=== PATIENT | female | born 1990 | race African-American/Black ===

== ENCOUNTER 2016-06-26 20:04 | Emergency (ER) | payer MEDICAID ==
[2016-06-26] MEDS ORDERED: cefTRIAXone 2 GM, Lidocaine 1% 4.2 ML IM ONE ×2 (20:53)
[2016-06-26] MEDS ORDERED: Acetaminophen/Codeine 300-30 MG Tab PO ONE (21:45)
[2016-06-26] MEDS ORDERED: Ketorolac 10 MG Tab PO ONE (21:45)
--- NOTE | 2016-06-26 21:51 | EDM.PDOC ---
ED HPI GENERAL MEDICAL PROBLEM - General Chief Complaint: Fever Stated Complaint: throat pain, headache, cellulitis right ankle Time Seen by Provider: 06/26/16 20:06 Source of Information: Reports: Patient History Limitations: Reports: No limitations - History of Present Illness INITIAL COMMENTS - FREE TEXT/NARRATIVE: Patient reports upper respiratory cough, sore throat, chest tightness, as well as a swollen, red right ankle. She states she does skateboard and scraped her ankle last night. It is now painful as well. She has history of foot surgery during 4-5th grades and does have hardware placed. Her respiratory symptoms began 2-3 days ago. She denies chills, nausea, vomiting, no urinary problems, no bowel problems, no blood noted in either, nor in emesis, which she again denies. No complaints of headache, no weakness, double or blurry vision. Onset: today Onset Date: 06/26/16 Onset Time: 08:00 Location: Reports: lower extremity, right Quality: Reports: Ache, Pressure Severity: moderate Improves with: Reports: Cold therapy, Rest Worsens with: Reports: Movement Associated Symptoms: Reports: fever/chills - Related Data Allergies Allergy/AdvReac Type Severity Reaction Status Date / Time azithromycin [From Zithromax] Allergy Hives Verified 06/26/16 20:56 erythromycin base Allergy Hives Verified 06/26/16 20:56 [From E-Mycin] hydromorphone HCl Allergy Shortness Verified 06/26/16 20:56 [From Dilaudid] of Breath Penicillins Allergy Hives Verified 06/26/16 20:56 Home Meds: Home Meds buPROPion [Wellbutrin XL] 150 mg PO DAILY 06/26/16 [History] Past Medical History - Past Surgical History Other HEENT Surgeries/Procedures: adenoids removed also Other Female Surgeries/Procedures: ovarian cyst removed Other Musculoskeletal Surgeries/Procedures:: bilat foot surgery. 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 Boxers fracture to R hand Social & Family History - Tobacco Use Smoking Status *Q: Never Smoker Years of Tobacco use: 12 - Alcohol Use Days Per Week of Alcohol Use: 0 - Recreational Drug Use Recreational Drug Use: No ED ROS GENERAL - Review of Systems Review Of Systems: See Below Constitutional: Reports: fever. Denies: chills HEENT: Reports: No symptoms Respiratory: Reports: No Symptoms Cardiovascular: Reports: No symptoms Endocrine: Reports: no symptoms GI/Abdominal: Reports: No symptoms : Reports: no symptoms Musculoskeletal: Reports: leg pain (right ankle), foot pain Skin: Reports: erythema Neurological: Reports: No Symptoms Psychiatric: Reports: No symptoms ED EXAM, GENERAL - Physical Exam Exam: See Below Exam Limited By: No limitations General Appearance: alert, WD/WN, mild distress Eye Exam: bilateral eye: EOMI, PERRL Ears: normal TMs Throat/Mouth: Normal inspection, Normal oropharynx, No airway compromise Head: atraumatic, normocephalic Neck: normal inspection, supple Respiratory/Chest: no respiratory distress, lungs clear, normal breath sounds Cardiovascular: normal peripheral pulses, regular rate, rhythm Peripheral Pulses: 2+: posterior tibial (L), posterior tibial (R), dorsalis pedis (L), dorsalis pedis (R) GI/Abdominal: normal bowel sounds, soft, non tender, no organomegaly Extremities: pedal edema (right ankle and foot), limited range of motion, increased warmth (right foot/ankle), redness Neurological: alert, oriented, CN II-XII intact, normal cognition Psychiatric: normal affect, normal mood Skin Exam: Warm, Dry, Intact, Erythema Lymphatic: no adenopathy Course - Orders/Labs/Meds Orders: Active Orders 24 hr Category Date Time Status Ankle 2V Rt [CR] Stat Exams 06/26/16 20:54 Stop Req Foot 2V Rt [CR] Stat Exams 06/26/16 20:55 Ordered CULTURE STREP A CONFIRMATION [RM] Stat Lab 06/26/16 20:35 Results STREP SCRN A RAPID W CULT CONF [RM] Stat Lab 06/26/16 20:56 Uncollected Acetaminophen/Codeine [Tylenol with Codeine No.3 300MG/ Med 06/26/16 21:45 Once 30MG] 1 tab PO ONETIME ONE Ketorolac [Toradol] Med 06/26/16 21:45 Once 10 mg PO ONETIME ONE Medication Orders Acetaminophen/Codeine Phosphate (Tylenol With Codeine No.3 300mg/30mg) 1 tab PO ONETIME ONE Stop: 06/26/16 21:46 Ketorolac Tromethamine (Toradol) 10 mg PO ONETIME ONE Stop: 06/26/16 21:46 Labs: Laboratory Tests 04/06/26/16 06/26/16 Range/Units 21:14 21:14 21:14 WBC 9.9 (4.0-10.0) x10^3/uL RBC 3.91 L (4.00-5.50) x10^6/uL Hgb 11.8 L (12.0-16.0) g/dL Hct 34.7 (33.0-47.0) % MCV 88.7 (78.0-93.0) fL MCH 30.2 (26.0-32.0) pg MCHC 34.0 (32.0-36.0) g/dL RDW Coeff of Nilesh 12.8 (10.0-15.0) % Plt Count 261 (130-400) x10^3/uL Neut % (Auto) 74.7 (50.0-80.0) % Lymph % (Auto) 13.9 L (25.0-50.0) % [place] % (Auto) 10.4 (2.0-11.0) % Eos % (Auto) 0.6 (0.0-4.0) % Baso % (Auto) 0.4 (0.2-1.2) % Lactic Acid 2.0 (0.4-2.0) mmol/L C-Reactive Protein 7.9 H (<=0.9) mg/dL Meds: Medications Generic Name Dose Route Start Last Admin Trade Name Freq PRN Reason Stop Dose Admin Acetaminophen/Codeine Phosphate 1 tab 06/26/16 21:45 Tylenol With Codeine No.3 300mg/30mg PO 06/26/16 21:46 ONETIME ONE Ketorolac Tromethamine 10 mg 06/26/16 21:45 Toradol PO 06/26/16 21:46 ONETIME ONE Discontinued Medications Generic Name Dose Route Start Last Admin Trade Name Freq PRN Reason Stop Dose Admin Ceftriaxone Sodium 2 gm/ 0 gm 06/26/16 20:53 06/26/16 21:25 Lidocaine HCl 4.2 ml IM 06/26/16 20:54 5 inj ONETIME ONE Administration - Re-Assessments/Exams Free Text/Narrative Re-Assessment/Exam: 06/26/16 21:56 x-ray on right foot/ankle does show intact hardwar, no osteomyelitis or hardware infection Departure - Departure Time of Disposition: 22:13 Disposition: Home, Self-Care 01 Condition: good Clinical Impression: Cellulitis of foot without toes, right, Pharyngitis Instructions: Cellulitis, Adult, [id number] Forms: ED Department Discharge Additional Instructions: Return on and Friday for antibiotic therapy. Please read the instructions I have provided you and if you feel that your infection is worsening please schedule an appointment with your primary provider or return to the emergency room. Make sure to elevate your leg, try to stay off of your feet as much as possible over the next 3-5 days May use ice on your leg for pain Please call us with any questions or concerns - Problem List & Annotations (1) Cellulitis of foot without toes, right SNOMED Code(s): 879943984 Code(s): L03.115 - CELLULITIS OF RIGHT LOWER LIMB Status: Acute Priority : Low Current Visit: Yes - Problem List Review Problem List Initiated/Reviewed/Updated: Yes - My Orders Last 24 Hours: My Active Orders 06/26/16 20:35 CULTURE STREP A CONFIRMATION [RM] Stat 06/26/16 20:54 Ankle 2V Rt [CR] Stat 06/26/16 20:55 Foot 2V Rt [CR] Stat 06/26/16 20:56 STREP SCRN A RAPID W CULT CONF [RM] Stat 06/26/16 21:45 Acetaminophen/Codeine [Tylenol with Codeine No.3 300MG/30MG] 1 tab PO ONETIME ONE Ketorolac [Toradol] 10 mg PO ONETIME ONE - Assessment/Plan Last 24 Hours: My Active Orders 06/26/16 20:35 CULTURE STREP A CONFIRMATION [RM] Stat 06/26/16 20:54 Ankle 2V Rt [CR] Stat 06/26/16 20:55 Foot 2V Rt [CR] Stat 06/26/16 20:56 STREP SCRN A RAPID W CULT CONF [RM] Stat 06/26/16 21:45 Acetaminophen/Codeine [Tylenol with Codeine No.3 300MG/30MG] 1 tab PO ONETIME ONE Ketorolac [Toradol] 10 mg PO ONETIME ONE Assessment:: Cellulitis right foot Pharyngitis Plan: Return on and Friday for antibiotic therapy. Please read the instructions I have provided you and if you feel that your infection is worsening please schedule an appointment with your primary provider or return to the emergency room. Make sure to elevate your leg, try to stay off of your feet as much as possible over the next 3-5 days May use ice on your leg for pain Please call us with any questions or concerns
[2016-06-26] MEDS ORDERED: Take Home: Acetaminophen/HYDROcodone 325-10 MG, 5 Tab Pack PO ONE (21:58)
[2016-06-27 03:01] VITALS: BP 131/83
== END 2016-06-26 22:12 | disposition home or self-care (01) ==
LOC: VM.ED 20:04
DX: L03.115 Cellulitis of right lower limb (principal); Z88.0 Allergy status to penicillin; Z88.5 Allergy status to narcotic agent; Z79.899 Other long term (current) drug therapy
CPT/HCPCS: 36415; 73620; 83605; 85025; 86140; 87081; 87880; 96372; 99283; A9270; J0696

== ENCOUNTER 2016-07-01 18:51 | Emergency (ER) | payer MEDICAID | END 2016-07-01 20:30 | disposition left against medical advice (07) | LOC: VM.ED 18:51 | DX: Z53.21 Procedure and treatment not carried out due to patient leaving prior to being seen by health care provider (principal) ==

== ENCOUNTER 2016-07-13 20:26 | Emergency (ER) | payer MEDICAID ==
--- NOTE | 2016-07-13 20:51 | EDM.PDOC ---
ED HPI Skin/Rash - General Chief Complaint: Skin Complaint Stated Complaint: swelling of both lower legs Time Seen by Provider: 07/13/16 20:38 Source: Reports: Patient, RN, RN notes reviewed History Limitations: Reports: No limitations - History of Present Illness INITIAL COMMENTS - FREE TEXT/NARRATIVE: Patient presents to the ED at [facility] concerned about worsening swelling of her lower legs. Patient was diagnosed with cellulitis a couple weeks ago. She states she was non-compliant with taking her antibiotics that were prescribed to her a couple weeks ago. Patient states she thinks her symptoms are better. No pain in legs. No fevers or chills. Timing: Reports: still present, better - Related Data Allergies Allergy/AdvReac Type Severity Reaction Status Date / Time azithromycin [From Zithromax] Allergy Hives Verified 06/26/16 20:56 erythromycin base Allergy Hives Verified 06/26/16 20:56 [From E-Mycin] hydromorphone HCl Allergy Shortness Verified 06/26/16 20:56 [From Dilaudid] of Breath Penicillins Allergy Hives Verified 06/26/16 20:56 Home Meds: Ambulatory Orders Medication Instructions Recorded Confirmed buPROPion [Wellbutrin XL] 150 mg PO DAILY 06/26/16 06/26/16 Furosemide 20 mg PO DAILY #3 tablet 07/13/16 Past Medical History [employer] History: Reports: - Past Surgical History Other HEENT Surgeries/Procedures: adenoids removed also Other Female Surgeries/Procedures: ovarian cyst removed Other Musculoskeletal Surgeries/Procedures:: bilat foot surgery. 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 Boxers fracture to R hand Social & Family History - Tobacco Use Smoking Status *Q: Never Smoker Years of Tobacco use: 12 - Alcohol Use Days Per Week of Alcohol Use: 0 - Recreational Drug Use Recreational Drug Use: No ED ROS GENERAL - Review of Systems Review Of Systems: See Below Constitutional: Denies: fever, chills, weakness Respiratory: Denies: Shortness of Breath, Cough Cardiovascular: Denies: Chest pain, Palpitations Musculoskeletal: Reports: other (swelling of both lower extremity) Skin: Reports: other (swelling of both lower extremity) Neurological: Reports: No Symptoms ED EXAM, SKIN/RASH Exam: See Below Exam Limited By: No limitations General Appearance: alert, no apparent distress Respiratory/Chest: no respiratory distress, lungs clear, normal breath sounds Cardiovascular: regular rate, rhythm Peripheral Pulses: 2+: radial (L), radial (R), posterior tibial (L), posterior tibial (R), dorsalis pedis (L), dorsalis pedis (R) Extremities: redness. No: pedal edema, leg pain, limited range of motion, increased warmth Neurological: alert, oriented Skin: Warm, Dry, Intact, Normal color, No rash Departure - Departure Time of Disposition: 20:52 Disposition: Home, Self-Care 01 Condition: good Clinical Impression: Cellulitis Qualifiers: Site of cellulitis: extremity Site of cellulitis of extremity: lower extremity Laterality: unspecified laterality Qualified Code(s): L03.119 - Cellulitis of unspecified part of limb Edema Qualifiers: Edema type: unspecified Qualified Code(s): R60.9 - Edema, unspecified Instructions: Cellulitis, Adult, Edema Forms: ED Department Discharge Additional Instructions: 1. Stay well hydrated and rest 2. Take water pill for 3 days 3. Avoid salt 4. Keep legs elevated as much as possible 5. See your Primary this next week - Problem List Review Problem List Initiated/Reviewed/Updated: Yes
[2016-07-13 20:53] VITALS: BP 128/80
[2016-07-13] MEDS ORDERED: Furosemide 20 MG Tab ONE (21:06)
== END 2016-07-13 21:07 | disposition home or self-care (01) ==
LOC: VM.ED 20:26
DX: L03.119 Cellulitis of unspecified part of limb (principal); Z88.8 Allergy status to other drugs, medicaments and biological substances; Z88.0 Allergy status to penicillin; Z88.1 Allergy status to other antibiotic agents; Z79.899 Other long term (current) drug therapy
CPT/HCPCS: 99284; A9270